=== PATIENT | female | born 1955 | race Caucasian/White ===

== ENCOUNTER 2023-05-30 06:45 | Day surgery (SDC) | payer MEDICARE, OTHER ==
[2023-05-25 10:28] VITALS: BP 166/72
[~2023-05-30] VITALS: Ht 152.4 cm; Wt 58.6 kg
[~2023-05-30 06:45] MED LIST: AMITRIPTYLINE H10 MG PO; AMLOD-VALSA-HC1 EAC1 PO; BUPROPION XL300 MG PO; CALCIUM500 MG PO; COZAAR100 MG PO; CYMBALTA60 MG PO; MULTI VITAMIN1 EACH PO; NALTREXONE HCL50 MG PO; REMERON15 MG PO; VITAMIN C500 M1 PO
[2023-05-30 07:25] VITALS: BP 160/77
--- NOTE | 2023-05-30 10:19 | NUR ---
05/30/23 1019 Shawna Sheth 1000 PT ARRIVED IN PACU WIDE AWAKE LAYING ON BACK. 1008 REPOSITIONED TO R SIDE. C/O BLADDER DISCOMFORT 03/30. 1011 FENTANYL 50MCG GIVEN IVP.
[2023-05-30 11:15] VITALS: BP 156/89
--- NOTE | 2023-05-30 11:56 | NUR ---
[id number]: PT ARRIVES TO DS TREATMENT ROOM FROM PACU ON LEFT SIDE. PT REPOSITIONS SELF FROM LEFT LATERAL TO PRONE AT 1040. PT AWARE THAT AT 1100 SHE CAN BE SUPINE AND CATHETER WILL BE REMOVED. PT SPOUSE AT BEDSIDE, CALL LIGHT WITHIN REACH. [id number]: PT SUPINE, APPROX 100 MLS BLUE COLORED URINE EMPTIED INTO DONIS GRAVITY BAG. 10 MLS CLEAR FLUID REMOVED FROM DONIS BALLOON AND DONIS REMOVED. PT TOLERATES WELL AND STATES FEELING "MUCH MORE COMFORTABLE" AND RATES PAIN FROM 5/10 TO 2/10. PT REQUESTS COFFEE AND IS PROVIDED COFFEE AND ICED WATER. 1215: PT USES CALL LIGHT TO NOTIFY RN OF URGE TO VOID, PT AMBULATES TO BATHROOM WITH STEADY GAIT AND RN ASSIST WITH NO DIZZINESS OR NAUSEA. PT ABLE TO VOID 250 MLS YELLOW URINE WITH SCANT AMOUNT RED BLOOD NOTED. PT BACK TO ROOM TO GET DRESSED. ICED WATER AND COFFEE REFILLED. SPOUSE REMAINS IN ROOM AT BEDSIDE.
[2023-05-30 12:15] VITALS: BP 170/76
--- NOTE | 2023-05-30 13:12 | NUR ---
PT IN BED. INDICATED WAS COMFORTABLE. EXPRESSED HOPE THAT BIOPSY DID NOT FIND CANCER. PRAYED.
--- NOTE | 2023-05-30 14:23 | NUR ---
[id number]: ABX CALLED INTO [facility] IN [place]. PT SPOUSE PROVIDED PAIN RX TO HAND DELIVER TO PHARMACY. [id number]: DC INSTRUCTIONS PROVIDED VERBALLY AND WRITTEN TO PT AND SPOUSE. MITOMYCIN INFORMATION SHEET PROVIDED IN DC PACKET. PT HAS NO FURTHER QUESTIONS AND DC FROM DS TREATMENT ROOM VIA WC TO PERSONAL VEHICLE IN HOSPITAL PARKING LOT TO HOME WITH SPOUSE.
--- NOTE | 2023-05-31 09:07 | OR ---
[facility] [address] [place], [place] [address] Signed DATE OF OPERATION: 05/30/2023 SURGEON: Armida Duke MD PREOPERATIVE DIAGNOSES: 1. Suspicious small bladder lesion detected on recent surveillance cystoscopy. 2. History of upper tract urothelial cell carcinoma, status post nephroureterectomy. POSTOPERATIVE DIAGNOSES: 1. Suspicious small bladder lesion detected on recent surveillance cystoscopy. 2. History of upper tract urothelial cell carcinoma, status post nephroureterectomy. NAMES OF PROCEDURES: 1. Diagnostic cystoscopy, bladder biopsy. 2. Intravesical instillation of mitomycin chemotherapy. ANESTHESIA: General. ESTIMATED BLOOD LOSS: Minimal. COMPLICATIONS: None. SPECIMENS: Multiple small pieces of bladder wall mucosa were obtained totaling three fragments. Two were obtained from an area of erythema on the posterior wall of the bladder and another was obtained from the dome of the bladder. DRAINS: An 18-Maldivian Hooks catheter, capped and secured to the patient's abdomen. INDICATIONS FOR PROCEDURE: Ms. Carrillo is a very pleasant 68-year-old female with a history of upper tract urothelial cell carcinoma, status post nephroureterectomy. She continues to undergo q.6 months surveillance cystoscopies. Under most recent cystoscopy, she was noted to have a small area of plaque like erythema on the posterior wall of the bladder measuring approximately 1 cm. There was another smaller area about 3-4 mm in size noted on the dome of the bladder. She presents today to undergo cystoscopy with bladder biopsy, Electronically Signed By: ARMIDA DUKE MD 05/31/23 0907 PATIENT NAME: BRIDGET SAL OPERATIVE REPORT DATE OF : 59 REPORT #: [id number] PHYSICIAN: ARMIDA DUKE MD PCP: HALLE CARMONA REPORT IS CONFIDENTIAL AND NOT TO BE RELEASED WITHOUT AUTHORIZATION [facility] [address] [place], [place] [address] Signed along with intravesical instillation of mitomycin chemotherapy. OPERATIVE FINDINGS: 1. Cystoscopy today again reveals an area of erythema on the posterior bladder wall measuring around 1 cm. This lesion was biopsied twice using cold cup biopsy forceps. There was another smaller area of erythema on the dome of the bladder that was not seen during her recent cystoscopy. This was also biopsied using a cold cup biopsy forcep. Both specimens will be sent to pathology. 2. There were no other obvious abnormalities present within the patient's bladder. Her left ureteral orifice is in its normal anatomic location effluxing clear urine. 3. After hemostasis was achieved via Bugbee cautery, the patient's bladder was instilled with 40 mg in 20 mL of intravesical mitomycin for a total of 1 hour, 15 minutes on each side. The mitomycin will be drained from the patient's bladder postoperatively. DESCRIPTION OF PROCEDURE: After informed consent was obtained, the patient was taken back to the operating room. [facility] was [facility] to the operating room table, where general anesthesia was induced. She was placed in the dorsal lithotomy position and the genitalia prepped and draped in standard sterile fashion. Using a 30-degree lens on a 22.5-Maldivian introducer, rigid cystoscope was inserted through her urethra and into her bladder under direct visualization. Panendoscopic views of bladder wall were then obtained. Please see above findings. Attention was turned to the first area of suspicion on the posterior wall. A total of two biopsies were obtained from this area using cold cup forceps. I then turned my attention to the small area of erythema and obtained another biopsy from this area using cold cup forceps. I thoroughly inspected the remainder of the patient's bladder wall and felt no other suspicious abnormalities. All three specimens will be sent to pathology for evaluation. A Bugbee electrocautery was then used to cauterize the areas of biopsy without difficulty. I drained the patient's bladder completely and then refilled the bladder and took another close look at the areas of prior biopsy and hemostasis had been adequately achieved. The cystoscope was then removed and an 18-Maldivian two-way Hooks catheter was inserted into the patient's bladder and the patient's bladder was drained completely. I then instilled 40 mg in 20 mL of sterile water and intravesical mitomycin into the bladder. The catheter was capped and secured to the patient's abdomen. The mitomycin will remain within the bladder for a total of 1 hour today. The procedure was then terminated. The patient tolerated the procedure well without complication. She will now be transferred to the postanesthesia care unit in stable condition. DISPOSITION: I discussed the details of today's procedure with the patient's and answered all of his questions. I told him that they will be contacted with the results of her bladder biopsy within the next 7-10 business days. Otherwise, I will see her back in Electronically Signed By: ARMIDA DUKE MD 05/31/23 0907 PATIENT NAME: BRIDGET SAL OPERATIVE REPORT DATE OF : 59 REPORT #: [id number] PHYSICIAN: ARMIDA DUKE MD PCP: HALLE CARMONA REPORT IS CONFIDENTIAL AND NOT TO BE RELEASED WITHOUT AUTHORIZATION [address] [address] Signed approximately two months for routine postoperative check. She will be sent home today with oxycodone 5 mg one tablet p.o. q.6 hours p.r.n. pain, dispense #30, along with Cipro 250 mg one tablet p.o. b.i.d. for a total of 7 days. MD BENJI Tom/MODL /[id number] Copies: ~ Electronically Signed By: ARMIDA DUKE MD 05/31/23 0907 PATIENT NAME: BRIDGET SAL OPERATIVE REPORT DATE OF : 59 REPORT #: [id number] PHYSICIAN: ARMIDA DUKE MD PCP: HALLE CARMONA REPORT IS CONFIDENTIAL AND NOT TO BE RELEASED WITHOUT AUTHORIZATION
--- NOTE | 2023-05-31 12:58 | PATH ---
[facility] [address] [facility] [place], [place] [address] Signed SPECIMEN(S): A BLADDER BIOPSY, POSTERIOR WALL SPECIMEN(S): B BLADDER BIOPSY, DOME SPECIMEN SOURCE: A. BLADDER BIOPSY, POSTERIOR WALL B. BLADDER BIOPSY, DOME CLINICAL HISTORY: Malignant neoplasm of right ureter; bladder CA. FINAL PATHOLOGIC DIAGNOSIS: A. Bladder biopsy, posterior wall: - Benign urothelium, negative for dysplasia or malignancy. - Slight stromal chronic inflammation. B. Bladder biopsy, dome: - Benign urothelium, negative for dysplasia or malignancy. - Slight stromal chronic inflammation. - Mildly dilated stromal vasculature. JVR:[facility]:C2NR MICROSCOPIC EXAMINATION: Histologic sections of all submitted blocks are examined by light microscopy. These findings, together with the gross examination, support the pathologic diagnosis. GROSS DESCRIPTION: A. The specimen, labeled and designated "Bugbee, posterior wall bladder biopsy," is received in formalin and consists of two miguel soft tissue fragments, ranging from 0.3-0.4 cm. Entirely submitted in (A1). B. The specimen, labeled and designated "Bugbee, bladder biopsy, dome," is received in formalin and consists of one miguel soft tissue fragment, 0.3 x 0.2 x 0.2 cm. Entirely submitted in (B1). KA (under the direct supervision of a pathologist) The Gross Description was prepared using a voice recognition system. The report was reviewed for accuracy; however, sound-alike word errors, addition and/or deletions may occur. If there is any question about this report, please contact Client Services. PERFORMING LABORATORY: Technical component was performed by [employer], PATIENT NAME: BRIDGET SAL PATHOLOGY DATE OF : 59 REPORT #: [id number] PHYSICIAN: [facility] PATHOLOG[facility] PCP: HALEL CARMONA REPORT IS CONFIDENTIAL AND NOT TO BE RELEASED WITHOUT AUTHORIZATION [facility] [address] [facility] [place] [address] [place] [address] (CLIA# [id number]). Professional interpretation was performed by [facility] - [facility], [address] [place] [address], [place] [address] (CLIA#: [id number]). Diagnostician: Tim Pastor MD Pathologist Electronically Signed 05/31/2023 Copies: ~ PATIENT NAME: BRIDGET SAL PATHOLOGY DATE OF : 59 REPORT #: [id number] PHYSICIAN: FABRICE HARRIS PCP: HALLE CARMONA REPORT IS CONFIDENTIAL AND NOT TO BE RELEASED WITHOUT AUTHORIZATION
== END 2023-05-30 12:45 | disposition home or self-care (01) ==
LOC: DS 06:45 → OPS 06:45 → DS 08:30 → OPS 12:45
PROVIDERS: ATTEND Urology
PROC: 3E0M705 Introduction of Other Antineoplastic into Peritoneal Cavity, Via Natural or Artificial Opening (ICD-10-PCS; 2023-05-30)
PROC: 0TBB8ZX Excision of Bladder, Via Natural or Artificial Opening Endoscopic, Diagnostic (ICD-10-PCS; principal; 2023-05-30 08:30)
DX: N30.20 Other chronic cystitis without hematuria (principal)
CPT/HCPCS: 00910; 88305; J0690; J1100; J2001; J2405; J2704; J3010; J7121; J9280